=== PATIENT | male | born 2000 | race African-American/Black ===

== ENCOUNTER 2023-11-18 20:58 | Emergency (ER) | payer SELFPAY ==
[~2023-11-18] VITALS: Ht 182.9 cm; Wt 81.8 kg
[2023-11-18 22:18] VITALS: BP 121/79; PULSE 66; RESP 16; TEMP 98.4; O2SAT 100
[2023-11-18] MEDS: DOXYCYCLINE HYCLATE 100MG CAPSULE PO ONE (22:42)
[2023-11-18] MEDS: CEFTRIAXONE SODIUM 500MG VIAL IM ONE (22:42)
[2023-11-18] MEDS ORDERED: DOXY-456 MT (22:52)
[2023-11-18 22:54] LABS: CLARITY URINE CLEAR (CLEAR); COLOR URINE YELLOW (YELLOW); GLUCOSE URINE NEGATIVE (NEGATIVE); KETONES URINE NEGATIVE (NEGATIVE); LEUKOCYTE ESTERASE URINE TRACE (NEGATIVE); NITRITE URINE NEGATIVE (NEGATIVE); OCCULT BLOOD URINE TRACE (NEGATIVE); PH URINE 6.5 (4.5-8.0); PROTEIN URINE NEGATIVE (NEGATIVE); SPECIFIC GRAVITY URINE 1.023 (1.005-1.030); UROBILINOGEN URINE 0.2 E.U./dL (0.2-1.0)
[2023-11-18 23:17] LABS: BACTERIA URINE TRACE; MUCUS URINE 1+ /lpf (NONE/TRACE); RBC URINE 0-2 /hpf (0-2); SQUAMOUS EPITHELIAL CELL URINE FEW /lpf (RARE/1+)
== END 2023-11-18 22:58 | disposition home or self-care (01) ==
LOC: ER 20:58
DX: Z11.3 Encounter for screening for infections with a predominantly sexual mode of transmission (principal); J45.909 Unspecified asthma, uncomplicated
CPT/HCPCS: 99283; 81003; 96372; J0696